=== PATIENT | male | born 1955 | race Caucasian/White ===

== ENCOUNTER 2021-05-24 18:08 | Emergency (ER) | payer OTHER, SELFPAY ==
--- NOTE | ~2021-05-24 | CT_ITS ---
EXAMINATION: CT lumbar spine wo con DATE: 05/24/2021 19:28 INDICATION: Severe back pain with sciatica TECHNIQUE: Computed tomography (CT) of the lumbar spine was performed without intravenous contrast. A utomated exposure control and iterative reconstruction technique were employed. The dose-length produ ct was 1349.80 mGy-cm. COMPARISON: None FINDINGS: Straightening of the normal lumbar lordosis. L4 laminectomy and partial L3 laminectomy. Anterior fusi on with bone graft cages and solid osseous fusion across the L3-L4 and L4-L5 disc spaces. Vertebral b scott heights are normal. Unfused disc heights are normal. Paravertebral soft tissues are unremarkable. The following disc levels are specifically discussed: T12-L1: The disc does not extend beyond the endplate margin. There is moderate left and moderate to s evere right facet joint osteoarthritis. There is no neural foraminal stenosis. There is no central ca nal stenosis. L1-L2: Disc is mildly bulging. There is severe bilateral facet joint osteoarthritis. There is vacuum phenomena within a synovial cyst arising from the medial aspect of the right facet joint. There is al so mild increased posterior epidural fat. There is mild bilateral neural foraminal stenosis. There is moderate to severe central canal stenosis. L2-L3: Disc is bulging. There is severe bilateral facet joint osteoarthritis. There is also mildly in creased posterior epidural fat. There is mild bilateral neural foraminal stenosis. There is moderate to severe central canal stenosis. L3-L4: Anterior fusion procedure. There is also posterior fusion across the bilateral facet joints. T here is mild to moderate bilateral neural foraminal stenosis. Posterior decompression with partial L3 and L4 laminectomies. No central canal stenosis. L4-L5: Anterior fusion procedure. There is also posterior fusion across the bilateral facet joints. T here is moderate left and mild to moderate right neural foraminal stenosis. Posterior decompression w ith L4 laminectomy. No central canal stenosis. L5-S1: Disc is mildly bulging. There is severe bilateral facet joint osteoarthritis. There is mild to moderate bilateral neural foraminal stenosis. There is no central canal stenosis. IMPRESSION: 1. No acute osseous abnormality. 2. Postoperative changes in the mid to lower lumbar spine including L4 laminectomy, partial L3 luis ctomy and anterior and posterior spinal fusion at L3-L4 and L4-L5. 3. Moderate to severe central canal stenosis at L1-L2 and L2-L3 resulting from combination of mild di sc bulges, severe hypertrophic facet osteoarthritis, increased posterior epidural fat and a synovial cyst arising from the right L1-L2 facet joint as detailed above. 4. Additional multilevel bilateral mild to moderate neural foraminal stenosis throughout the lumbar s pine. Reviewed, dictated and finalized at location A. IER GREETER IMPRESSION: 1. No acute osseous abnormality. 2. Postoperative changes in the mid to lower lumbar spine including L4 laminect sri, partial L3 laminectomy and anterior and posterior spinal fusion at L3-L4 a nd L4-L5. 3. Moderate to severe central canal stenosis at L1-L2 and L2-L3 resulting from combination of mild disc bulges, severe hypertrophic facet osteoarthritis, incr eased posterior epidural fat and a synovial cyst arising from the right L1-L2 f acet joint as detailed above. 4. Additional multilevel bilateral mild to moderate neural foraminal stenosis t hroughout the lumbar spine.
--- NOTE | ~2021-05-24 | XR_ITS ---
EXAMINATION: XR hip LT 2V w AP pelvis DATE: 05/24/2021 19:35 INDICATION: Left hip pain TECHNIQUE: Anteroposterior view of the pelvis and anteroposterior and frog-leg lateral views of the l eft hip were obtained. COMPARISON: None. FINDINGS: Alignment is normal. No fracture or suspected avascular necrosis. Mild bilateral hip and sacroiliac o steoarthritis. L3 and L4 laminectomies and bone graft cages for anterior spinal fusion at L3-L4 and L 4-L5. Sclerotic likely bone islands at the left ischial . IMPRESSION: 1. Mild bilateral hip osteoarthritis. No acute osseous abnormality. 2. Postoperative changes in the lower lumbar spine. Reviewed, dictated and finalized at location A. ROASTER
--- NOTE | ~2021-05-24 | XR_ITS ---
EXAMINATION: XR chest 2V DATE: 05/24/2021 19:35 INDICATION: Hypoxia TECHNIQUE: frontal and lateral views of the chest were obtained. COMPARISON: None FINDINGS: Mild hyperexpansion of lungs with mild flattening of the diaphragm and relative increased lucency and some architectural distortion in the right upper lung zone suggestive but not diagnostic of COPD. rspace opacities in bilateral mid and lower lung zones. Left paracardial fat pad projecting between t he apex of the heart and the left costophrenic angle. No pleural effusion or pneumothorax. Borderline heart size accounting for AP technique. Moderate thoracic spondylosis. Moderate to severe bilateral acromioclavicular osteoarthritis. IMPRESSION: 1. Opacities in the bilateral mid and lower lung zones which could represent either mild pulmonary ed aida or pneumonia including COVID pneumonia. 2. Appearance suggestive but not diagnostic of COPD. 3. Borderline heart size. Reviewed, dictated and finalized at location A. [facility] IMPRESSION: 1. Opacities in the bilateral mid and lower lung zones which could represent ei ther mild pulmonary edema or pneumonia including COVID pneumonia. 2. Appearance suggestive but not diagnostic of COPD. 3. Borderline heart size.
[2021-05-24 18:15] VITALS: PULSE 97; RESP 14; TEMP 37.1; O2SAT 95
--- NOTE | 2021-05-24 18:54 | ED.LOWEXIN ---
HPI - Extremity Injury (Lower) General Chief Complaint: Extremity Injury, Lower Stated Complaint: left hip pain Time Seen by Provider: 05/24/21 18:17 Source: patient Mode of arrival: ambulatory Limitations: no limitations History of Present Illness HPI Narrative: This is a 66 year old male with history of Diabetes Mellitus, peripheral neuropathy, chronic back pain who presents for evaluation of left hip pain. He states he developed sudden severe left hip pain on Saturday. He thinks he was just laying in bed or sitting when his pain came on, and he denies any trauma. He has chronic back pain with sciatica so he takes oxycodone 10 mg every 6 hours. He reports pain has been constant and it is radiating down his left leg. His reports when he has severe pain like this he has difficulty walking due to the pain. His pain is worse with movement. He reports numbness to bilateral feet due to neuropathy but he denies any worsening numbness or tingling. He denies abdominal pain, nausea, vomiting or fever. he has not taken anything additional for his pain other than his prescription medication. He has had multiple back surgeries and he states he was told there was nothing else for that they could do for him. Related Data Allergies Allergy/AdvReac Type Severity Reaction Status Date / Time No Known Allergies Allergy Verified 05/24/21 18:19 Review of Systems Review of Systems: All systems reviewed & are unremarkable except as noted in HPI and below PMFSH Past Medical History Medical History (Updated 05/24/21 @ 21:15 by Chey Beck MD) Abnormality of gait Chronic pain syndrome Gait abnormality Type 2 diabetes mellitus with diabetic neuropathy Surgical History Surgical History (Updated 05/24/21 @ 19:02 by Chey Beck MD) History of back surgery Family History Family History Father Cerebrovascular accident Mother Cerebrovascular accident Social History Social History Smoking status: Former smoker Second hand tobacco smoke exposure: No Smoking end date: 07/08/10 Alcohol intake: never Exam Const: General: no acute distress and alert Orientation/consciousness: patient oriented x3 Eyes: EOM: EOMs intact bilaterally Chest: Chest palpation & inspection: normal inspection of the chest Resp: Effort & Inspection: normal respiratory effort and no retractions Auscultation: clear to auscultation bilaterally Cardio: Rate: regular rate Rhythm: regular rhythm Heart sounds: no murmurs GI: GI Palp: Yes Soft to palpation, No Tenderness to palpation present (GI) and No Guarding due to palpation present (GI) Auscultation: normal bowel sounds Back/Spine/Pelvis: Pelvis: buttock tenderness and sciatic notch tenderness on the left Neuro: General: patient oriented x3, moves all extremities and CN's II-XI intact bilaterally Extrem: General: edema bilateral (pedal) Psych: Mental Status: mental status grossly normal Affect: normal affect Course Reevaluation(s) Reevaluation #1: Patient was found to have oxygen saturation ranging 87-92% on room air. PAtient denies chest pain, cough or shortness of breath. I have discussed that xray is showing possible pneumonia or CHF. He denies history of CHF. He states he has been vaccinated for COVID . He has also been found to have atrial fibrillation with RVR with he states is new. I re commended admission due to his hypoxia which is likely CHF with pulmonary edema. Patient is refusing to stay. He reports he feels better and her pain is better. He is able to move bilateral legs with 5/5/ strength now. He denies bowel or urinary incontinence, retention. No saddle anesthesia. Patient wants to leave AMA. he does not want to wait for me to talk to PCP. I also discussed that his saturation may continue to decline with pain medication and he may not wake up or have st
[2021-05-24 18:57] LABS: Basophils Absolute Auto 0.1 K/mm3 (0.0-0.1); Basophils Percent Auto 0.7 % (0.2-1.2); Eosinophils Absolute Auto 0.2 K/mm3 (0-0.3); Eosinophils Percent Auto 1.3 % (0-4.4); Hematocrit 47.5 % (42.0-52.0); Immature Granulocyte Absolute 0.05 K/mm3 (0.00-0.031); Immature Granulocyte Percent A 0.4 % (0-0.5); Lymphocytes Absolute Auto 1.95 K/mm3 (0.9-3.2); Lymphocytes Percent Auto 17.3 % (18.3-44.2); Mean Corpuscular HGB Conc 33.7 g/dl (32-36); Mean Corpuscular Hemoglobin 30.5 pg (26-34); Mean Corpuscular Volume 90.5 fl (80-100); Mean Platelet Volume 10.5 fl (7.4-10.4); Monocytes Absolute Auto 0.8 K/mm3 (0.1-0.6); Monocytes Percent Auto 7.2 % (2.6-8.5); Neutrophils Absolute Auto 8.2 K/mm3 (1.3-6.7); Neutrophils Percent Auto 73.1 % (45.5-73.1); Platelet Count Result 181 k/mm3 (150-375); Red Blood Count 5.25 M/mm3 (4.6-6.20); Red Cell Distribution Width 13.2 % (11.5-14.5); White Blood Count 11.3 K/mm3 (4.5-10.0)
[2021-05-24] MEDS: HYDROmorphone HCL INJ (*CRX) 1 MG/ML SYR IV PUSH (19:00)
[2021-05-24] MEDS: ONDANSETRON INJ 4 MG/2 ML VIAL IV PUSH (19:01)
[2021-05-24] MEDS: KETOROLAC 30 MG/ML VIAL (*BKC) IV PUSH (19:01)
[2021-05-24] MEDS: methylPREDNISolone SOD SUCC 125 MG VIAL IV PUSH (19:01)
[2021-05-24 19:08] LABS: Alanine Aminotransferase 19 U/L (4-50); Alkaline Phosphatase 84 U/L (38-126); Anion Gap 8 mmol/L (8-16); Aspartate Amino Transferase 22 U/L (17-59); Bilirubin,Total 0.5 mg/dL (0.2-1.3); Blood Urea Nitrogen 22 mg/dL (9-20); Carbon Dioxide 27 mmol/L (22-30); Chloride 100 mmol/L (98-107); Estimated CRCL calculation 103 ml/min; Estimated Glomerular Filt Rate > 60; Glucose 223 mg/dL (65-110); Potassium 4.7 mmol/L (3.4-5.0); Sodium 135 mmol/L (137-145)
[2021-05-24 19:49] VITALS: BP 172/98; PULSE 100; RESP 18; O2SAT 99
--- NOTE | 2021-05-24 20:28 | ECG_ITS ---
Measurements Intervals [place] Rate: 103 P: [place]: 0 QRS: 96 QRSD: 84 T: 63 QT: 324 QTc: 425 Interpretive Statements ATRIAL FIBRILLATION WITH RAPID VENTRICULAR RESPONSE RIGHT AXIS DEVIATION LOW QRS VOLTAGE IN DIFFUSE LEADS CANNOT RULE OUT SEPTAL INFARCT, AGE INDETERMINATE BASELINE ARTIFACT- II, III ABNORMAL ECG Electronically Signed On 05-25-2021 6:04:57 HEATING UNIT INSTALLER by Harry Zurita D.O.
[2021-05-24 20:33] LABS: Alveolar/Arterial O2 Gradient 27.8 mmHg; Base Excess ABG -0.2 mEq/l (+/-2.0); Carboxyhemoglobin 1.6 % THb (0-2.0); Fractional Inspired Oxygen 21 %; HCO3 ABG 25.1 mEq/l (22.0-26.0); Methemoglobin ABG 0.3 %THb (0-1.5); Oxygen Content ABG 20.9 %vol (16.0-22.0); Oxygen Saturation ABG 93.8 % (95.0-100.0); Oxyhemoglobin 91.8 % THb (90.0-100.0); PCO2 ABG 43.3 mmHg (35.0-45.0); PO2 ABG 70.1 mmHg (80.0-100.0); PO2 FiO2 Ratio Arterial Blood 3.34 %; Reduced Hemoglobin 6.3 %THb (0-5.0); Total Hemoglobin 16.2 g/dL (12.0-18.0); pH ABG 7.381 (7.350-7.450)
[2021-05-24 20:34] LABS: Device ROOM AIR; Modified Allen's Test Pass; Site Drawn RIGHT RADIAL
[2021-05-24 20:56] LABS: Partial Thromboplastin Time 31.5 SECONDS (22.3-36.8); Prothrombin Time 13.1 Seconds (11.1-14.7)
[2021-05-24 20:57] LABS: D Dimer 0.37 ug/mL (<0.48)
[2021-05-24 21:07] LABS: NT Pro B Type Natriuretic Pept 316 pg/mL (5-100); Troponin I < 0.012 ng/mL (0.000-0.034)
[2021-05-24 21:26] VITALS: PULSE 132; RESP 30; O2SAT 89
[2021-05-25 18:39] LABS: SARS-CoV-2 RNA PCR Positive
== END 2021-05-24 21:27 | disposition left against medical advice (07) ==
PROVIDERS: Emergency Provider General Practice; PCP Internal Medicine
DX: U07.1 COVID-19 (principal); I48.91 Unspecified atrial fibrillation; M54.42 Lumbago with sciatica, left side; R09.02 Hypoxemia; M19.90 Unspecified osteoarthritis, unspecified site; E11.40 Type 2 diabetes mellitus with diabetic neuropathy, unspecified
CPT/HCPCS: 36415; 36600; 71046; 72131; 73502; 80053; 82375; 82805; 83050; 83880; 84484; 85025; 85380; 85610; 85730; 93005; 96374; 96375; 99284; C9803; J1170; J1885; J2405; J2930; U0003; U0005

== ENCOUNTER 2021-05-27 21:04 | Emergency (ER) | payer OTHER, SELFPAY ==
--- NOTE | ~2021-05-27 | XR_ITS ---
EXAMINATION: XR chest 1V portable EXAM DATE: 05/27/2021 23:27 INDICATION: shortness of breath, weakness. TECHNIQUE: Portable AP frontal chest x-ray was obtained. Comparison is made to prior examination from 05/24/2021. FINDINGS: There is small to moderate amount of bilateral ill-defined airspace disease not significant ly changed, could be pneumonia and/or edema. Left pleural blunting. No pleural effusion with identifi ed on subsequent CT. No pneumothorax. Mild cardiomegaly. There are mild bony degenerative changes. IMPRESSION: 1. Cardiomegaly. 2. Ill-defined bilateral edema or pneumonia. Reviewed, dictated and finalized at location A. POWER DEVELOPER
--- NOTE | ~2021-05-27 | CT_ITS ---
EXAMINATION: CTA abd aorta runoff EXAM DATE: 05/28/2021 00:14 INDICATION: Dusky lower ext, pain. TECHNIQUE: Spiral CT of the abdomen and pelvis was performed following intravenous injection of 150 m L Omnipaque 350. Axial, coronal and sagittal images of the abdomen and pelvis were reviewed. The do se-length product (DLP) for this examination was 1559.91 mGy-cm. The exposure was tailored according to patient size (auto mA exposure control), and iterative reconstruction (ASIR) was used as addition al dose reduction technique. There is no prior study for comparison. 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 There is reconstitution of the common iliac arteries through collateral circulation. The right femoral, poplit eal arteries and trifurcation are patent to the ankle. The left femoral artery is patent, popliteal a rtery occluded at the knee joint level with evidence of geniculate collateralization, reconstitution of the anterior tibial, then intraosseous and then posterior tibial arteries in that order. Left ante rior tibial artery then appears to be completely occluded just above the ankle joint. Small portion inferior pole right kidney has less enhancement, could be acute right renal infarction. Small periumbilical fat-containing hernia. Poorly calcified cholelithiasis, gallbladder unremarkable . Liver, spleen, pancreas and adrenal glands are unremarkable. No hydronephrosis. There is mild to mo derate scattered colonic diverticulosis. There is no adjacent inflammatory change to suggest diverti culitis. Moderate amount colonic stool. Prostate and bladder unremarkable. L3-4 and L4-5 interbody f usion. IMPRESSION: 1. 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 2. 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 3. Occluded left popliteal with three-vessel reconstitution through geniculate collaterals, but only intraosseous and posterior tibial appear to supply the left foot. 4. 3 vessel right lower extremity runoff beyond the common iliac artery occlusion. STAT Rad radiologist phoned, discussed this case with clinician as per documentation in their report, which was faxed and scanned into PACS with this exam. Reviewed, dictated and finalized at location A. OR DATA ARCHITECT IMPRESSION: 1. 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 2. 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 3. Occluded left popliteal with three-vessel reconstitution through geniculate collaterals, but only intraosseous and posterior tibial appear to supply the l eft foot. 4. 3 vessel right lower extremity runoff beyond the common iliac artery occlus ion. STAT Rad radiologist phoned, discussed this case with clinician as per document ation in their report, which was faxed and scanned into PACS with this exam.
[2021-05-27 21:11] VITALS: BP 123/93; PULSE 102; RESP 18; TEMP 36.8; O2SAT 94
--- NOTE | 2021-05-27 22:25 | PC.NURSE ---
This RN unable to find pedal pulse using Doppler. EDP Michael notified.
--- NOTE | 2021-05-27 22:40 | PC.NURSE ---
EDP Akanksha at bedside with Doppler. Per EDP, unable to find pedal pulse. Pt moved to room 10, report given.
--- NOTE | 2021-05-27 22:46 | ECG_ITS ---
Measurements Intervals [place] Rate: 111 P: [place]: 0 QRS: 96 QRSD: 82 T: 56 QT: 292 QTc: 398 Interpretive Statements ATRIAL FIBRILLATION WITH RAPID VENTRICULAR RESPONSE RIGHT AXIS DEVIATION LOW QRS VOLTAGE IN PRECORDIAL LEADS CANNOT RULE OUT SEPTAL INFARCT, AGE INDETERMINATE BASELINE ARTIFACT- I, II, AVR, V1 ABNORMAL ECG Electronically Signed On 05-28-2021 7:19:47 CREDENTIALER by Harry Zurita D.O.
[2021-05-27 22:58] VITALS: PULSE 127; RESP 30; O2SAT 94
[2021-05-27 23:00] VITALS: PULSE 131; RESP 33; O2SAT 95
[2021-05-27] MEDS: SODIUM CHLORIDE 0.9% IV 1,000 ML 999 ML IV CONT (23:08)
[2021-05-27 23:15] VITALS: PULSE 137; RESP 33; O2SAT 94
[2021-05-27 23:20] LABS: Basophils Absolute Auto 0.1 K/mm3 (0.0-0.1); Basophils Percent Auto 0.4 % (0.2-1.2); Eosinophils Absolute Auto 0.1 K/mm3 (0-0.3); Eosinophils Percent Auto 0.3 % (0-4.4); Hematocrit 47.8 % (42.0-52.0); Immature Granulocyte Absolute 0.08 K/mm3 (0.00-0.031); Immature Granulocyte Percent A 0.5 % (0-0.5); Lymphocytes Absolute Auto 1.63 K/mm3 (0.9-3.2); Lymphocytes Percent Auto 10.2 % (18.3-44.2); Mean Corpuscular HGB Conc 33.5 g/dl (32-36); Mean Corpuscular Hemoglobin 30.6 pg (26-34); Mean Corpuscular Volume 91.4 fl (80-100); Mean Platelet Volume 10.6 fl (7.4-10.4); Monocytes Absolute Auto 1.1 K/mm3 (0.1-0.6); Monocytes Percent Auto 6.9 % (2.6-8.5); Neutrophils Percent Auto 81.7 % (45.5-73.1); Platelet Count Result 204 k/mm3 (150-375); Red Blood Count 5.23 M/mm3 (4.6-6.20); Red Cell Distribution Width 13.4 % (11.5-14.5); White Blood Count 15.9 K/mm3 (4.5-10.0)
[2021-05-27 23:22] LABS: Partial Thromboplastin Time 29.2 SECONDS (22.3-36.8); Prothrombin Time 13.2 Seconds (11.1-14.7)
[2021-05-27 23:24] LABS: Lactic Acid Reflex 2.5 mmol/L (0.7-2.1)
[2021-05-27 23:28] LABS: Anion Gap 8 mmol/L (8-16); Blood Urea Nitrogen 22 mg/dL (9-20); Calcium 8.8 mg/dL (8.4-10.2); Carbon Dioxide 30 mmol/L (22-30); Chloride 93 mmol/L (98-107); Estimated CRCL calculation 103 ml/min; Estimated Glomerular Filt Rate > 60; Glucose 294 mg/dL (65-110); Magnesium 1.6 mg/dL (1.6-2.3); Potassium 4.8 mmol/L (3.4-5.0); Sodium 131 mmol/L (137-145)
[2021-05-27 23:30] VITALS: PULSE 117; RESP 29
[2021-05-27 23:39] LABS: Troponin I 0.056 ng/mL (0.000-0.034)
[2021-05-28] VITALS (26 sets, daily range): BP systolic 100–177; BP diastolic 66–99; PULSE 112–153; RESP 19–42; O2SAT 91–96
--- NOTE | 2021-05-28 00:19 | ED.EXTPRO ---
HPI - Extremity Problem General Chief complaint: Extremity Problem,Nontraumatic <Brenda Vale MD - Last Filed: 05/28/21 01:15> Stated complaint: hip and leg pain <Brenda Vale MD - Last Filed: 05/28/21 01:15> Time Seen by Provider: 05/27/21 22:29 <Brenda Vale MD - Last Filed: 05/28/21 01:15> Source: patient and family <Brenda Vale MD - Last Filed: 05/28/21 01:15> Mode of arrival: wheelchair <Brenda Vale MD - Last Filed: 05/28/21 01:15> Limitations: no limitations <Brenda Vale MD - Last Filed: 05/28/21 01:15> History of Present Illness HPI Narrative: 66 year old male with PMH DM2, Chronic back pain and chronic leg pain arrives with complaints of increasing pain to LLE; took norco without relief. Seen by pain management yesterday without relief. On arrival nursing noted B dusky extremities, unable to palpate pulse. Patient states usually dusky. Doesn't know why. Not on blood thinners. Of note patient diagnoses with afib with RVR 3 days ago at this hospital but refused admission and left AMA. Pain located L hip radiating L lateral leg. Worse with ambulating, improves wiht nothing. <Brenda Vale MD - Last Filed: 05/28/21 01:15> Related Data Allergies/Adverse reactions: Allergies Allergy/AdvReac Type Severity Reaction Status Date / Time No Known Allergies Allergy Verified 05/27/21 22:04 <Brenda Vale MD - Last Filed: 05/28/21 01:15> Review of Systems Review of Systems: CONSTITUTIONAL: no fever, no weight loss, no confusion EYES: no vision changes, no eye pain ENT: no rhinorrhea, no sore throat, no difficulty swallowing CARDIOVASCULAR: no chest pain, positive for leg edema; dusky extremities, no palpitations RESPIRATORY: no cough, no shortness of breath, no hemoptysis GASTROINTESTINAL: no abdominal pain, no nausea, no vomiting, no diarrhea GENITOURINARY: no flank pain, no dysuria, no hematuria SKIN: no rash, no jaundice MUSCULOSKELETAL: positive for leg pain, back pain, no trauma. NEUROLOGIC: No headache, no dizziness, no focal weakness PSYCHIATRIC: No hallucinations, no suicidal ideation <Brenda Vale MD - Last Filed: 05/28/21 01:15> [facility] Past Medical History Medical History: Medical History Abnormality of gait Chronic pain syndrome Gait abnormality Type 2 diabetes mellitus with diabetic neuropathy <Brenda Vale MD - Last Filed: 05/28/21 01:15> Surgical History Surgical History: Surgical History History of back surgery <Brenda Vale MD - Last Filed: 05/28/21 01:15> Family History Family History: Family History Father Cerebrovascular accident Mother Cerebrovascular accident <Brenda Vale MD - Last Filed: 05/28/21 01:15> Social History Social History: Social History Smoking status: Former smoker Second hand tobacco smoke exposure: No Smoking end date: 07/08/10 Alcohol intake: never <Brenda Vale MD - Last Filed: 05/28/21 01:15> Exam Narrative: General: alert, afebrile, answering all questions appropriately Head: normocephalic, atraumatic Eyes: EOMI bilaterally, anicteric, no injection ENT: moist mucous membranes, oropharynx patent, no rhinorrhea Neck: supple, trachea midline, no JVD Chest: equal chest rise bilaterally, no chest wall trauma noted Lungs: clear to auscultation bilaterally, respirations unlabored CV: tachycardia, irregular, 2+ JANUSZ B, calf size equal bilaterally Abd: soft, non-distended, non-tender, no rebound, no gaurding, negative Lea's EXT: no deformity noted, moving all extremities equall; dusky exremities DP/PT nonprofit fundraiser Skin: warm, dry, peripheral cyanosis Neuro: alert, oriented x 3; CN 2-12 grossly intact, no dys
[2021-05-28] MEDS: fentaNYL CITRATE INJ (*CRX) 100 MCG/2 ML VIAL 50 MCG IV PUSH (01:10)
[2021-05-28 01:35] LABS: Lactic Acid Reflex 1.8 mmol/L (0.7-2.1)
[2021-05-28 01:44] LABS: Add Urine Microscopic? YES; Appearance Urine Clear (Clear); Bilirubin Urine Negative (Negative); Blood Urine 1+ (Negative); Color Urine Straw (Yellow); Glucose Urine UA 3+ mg/dL (Negative); Ketones Urine Negative (Negative); Leukocyte Esterase Ur Negative LEU/UL (Negative); Nitrate Urine Negative (Negative); Protein Urine Negative (Negative); Specific Grav Ur 1.035 (1.001-1.035); Urobilinogen Urine Negative mg/dL (<2.0); WBC Urine 0-3 /hpf
[2021-05-28 02:00] LABS: CRP 13.9 mg/dL (<1.0)
--- NOTE | 2021-05-28 02:10 | PC.NURSE ---
This RN entered room to administer requested pain medication and witnessed pt sitting in chair, next to stretcher, unhooked from all monitor leads. Pt states that we are not doing anything for his pain and that the reason his heart rate is elevated is because the way hes been treated here. Pt verbalized his want to leave AMA. This RN educated pt on atrial fibrillation and the risks of leaving AMA, including . Pt verbalized his intention to stay only until the sun rises .
[2021-05-28 02:12] LABS: Reflex Lactic Acid Yes or No Add Lactic
[2021-05-28] MEDS: MORPHINE SULFATE (*CRX) 4 MG/ML INJ IV PUSH ×2 (02:15→03:26)
[2021-05-28 02:34] LABS: Lactic Acid 2.3 mmol/L (0.7-2.1)
[2021-05-28 02:57] LABS: Troponin I 0.065 ng/mL (0.000-0.034)
[2021-05-28] MEDS: LACTATED RINGERS 1,000 ML 999 ML IV CONT (03:27)
--- NOTE | 2021-05-28 03:38 | PC.NURSE ---
Talked with patient. Pt states my ass is burning so I offered patient a recliner, pt states if he got a recliner that he would stay.
[2021-05-28] MEDS: HEPARIN SODIUM 5,000 UNITS/ML VIAL 7500 UNITS IV PUSH (04:24)
[2021-05-28 04:37] LABS: Lactic Acid Reflex 2.2 mmol/L (0.7-2.1)
[2021-05-28] MEDS: HEPARIN SOD/D5W 100 UNITS/ML 25,000 UNITS/250 ML BAG 15 UNITS IV CONT (04:48)
== END 2021-05-28 05:06 | disposition short-term general hospital (02) ==
PROVIDERS: Emergency Medicine; Emergency Provider Emergency Medicine; PCP Internal Medicine
DX: K55.069 Acute infarction of intestine, part and extent unspecified (principal); I82.432 Acute embolism and thrombosis of left popliteal vein; I74.3 Embolism and thrombosis of arteries of the lower extremities; I48.91 Unspecified atrial fibrillation; R79.89 Other specified abnormal findings of blood chemistry; E11.40 Type 2 diabetes mellitus with diabetic neuropathy, unspecified; M79.605 Pain in left leg; D72.829 Elevated white blood cell count, unspecified; G89.4 Chronic pain syndrome; M54.9 Dorsalgia, unspecified; Z79.84 Long term (current) use of oral hypoglycemic drugs; Z87.891 Personal history of nicotine dependence; R94.31 Abnormal electrocardiogram [ECG] [EKG]; I51.7 Cardiomegaly; R91.8 Other nonspecific abnormal finding of lung field
CPT/HCPCS: 36415; 71045; 75635; 80048; 81001; 83605; 83735; 84484; 85025; 85610; 85730; 86140; 87040; 93005; 96361; 96365; 96366; 96375; 96376; 99285; J1644; J2270; J3010; J7030; J7120; Q9967